=== PATIENT | female | born 1970 | race Hispanic/Latino ===

== ENCOUNTER → 2017-11-03 | Outpatient (CLI) | payer OTHER ==
--- NOTE | 2017-11-03 12:17 | Diagnostic Imaging Report ---
PROCEDURE:L-SPINE COMPLETE COMPARISON:None. INDICATIONS:BACK PAIN FINDINGS: There are 5 nonrib-bearing lumbar-type vertebral bodies. No acute, displaced fracture or subluxation. Intervertebral disc spaces and facet joints are well maintained. No pars interarticularis defects are identified on the oblique radiographs. Sacroiliac joints are intact. Probable posttraumatic deformity of the posterior left 12th rib. CONCLUSION: No acute osseous abnormality. Dictated by: Delmer Lamb M.D. on 11/03/2017 at 12:19 Electronically approved by: Delmer Lamb M.D. on 11/03/2017 at 12:19
== END ==
LOC: RAD 11:24
PROVIDERS: ATTEND Internal Medicine
DX: M47.816 Spondylosis without myelopathy or radiculopathy, lumbar region (principal)
CPT/HCPCS: 72110